=== PATIENT | female | born 1995 | race Caucasian/White ===

== ENCOUNTER 2016-12-15 22:08 | Observation (INO) | payer OTHER ==
[~2016-12-15] VITALS: Ht 162.6 cm; Wt 51.8 kg
[2016-12-15] MEDS ORDERED: SODIUM CHLORIDE FLUSH 10 ML SYR IV PRN (22:30)
--- NOTE | 2016-12-15 22:30 | NUR ---
NOTE ANDRES FROM [facility] PRIOR TO PT COMING IN. HE DID LET RN KNOW WHAT PT HAD TAKEN AND THAT EKG NEEDED DONE AND TO DO NORMAL LAB (CBC, CMP, DRUG, ETOH ETC) THEN MONITOR PT 6-8 HR FOR SIDE EFFECTS. DID LET DR WETZEL ON THIS.
[2016-12-15 22:52] LABS: BASOPHILS % (AUTO) 0 % (0-2); EOSINOPHILS # (AUTO) 0.2 10^3uL; EOSINOPHILS % (AUTO) 2 % (0-4); LYMPHOCYTES # (AUTO) 3.5 X10^3; MEAN CORPUSCULAR HEMOGLOBIN 28.3 PG (26.0-34.0); MEAN CORPUSCULAR HGB CONC 34.1 g/dL (31.0-37.0); MEAN CORPUSCULAR VOLUME 83 FL (80-100); MONOCYTES # (AUTO) 1.1 X10^3; MONOCYTES % (AUTO) 8 % (3-11); NEUTROPHILS # (AUTO) 7.9 X10^3; NEUTROPHILS % (AUTO) 62 % (51-67); PLATELET COUNT 210 10^3uL (150-450); WHITE BLOOD COUNT 12.69 10^3uL (4.0-11.0)
[2016-12-15 22:55] LABS: BILIRUBIN,URINE Negative (Negative); CLARITY,URINE Clear; COLOR,URINE Yellow; GLUCOSE, URINE (UA) Negative (Negative); LEUKOCYTE ESTERASE ,URINE Trace (Negative); PH,URINE 5.5 (5.0 - 8.0); UROBILINOGEN,URINE 0.2 mg/dL (0.2-1.0)
[2016-12-15 23:03] LABS: ALBUMIN 4.9 g/dL (3.4-5.0); ALKALINE PHOSPHATASE 73 U/L (38-126); ANION GAP 15.8 MEQ/L (3-15); BUN/CREATININE RATIO 22 (10-20); CALCULATED IONIZED CALCIUM 3.9 mg/dL (3.8-4.6); TOTAL PROTEIN 8.4 g/dL (6.4-8.5)
[2016-12-15 23:05] LABS: AMPHETAMINE SCREEN, URINE Negative (Negative); CANNABINOID SCREEN, URINE Negative (Negative); HCG,QUALITATIVE URINE Negative (Negative); METHAMPHETAMINE SCREEN URINE S NEGATIVE (NEGATIVE); RBC,URINE 0-2 /HPF; URINE CENTRIFUGED VOLUME 12 mL
[2016-12-15 23:06] LABS: OPIATE SCREEN URINE Negative (Negative); PROPOXYPHENE STAT NEGATIVE (NEGATIVE)
[2016-12-16] VITALS (7 sets, daily range): BP systolic 100–115; BP diastolic 52–71
[2016-12-16] MEDS ORDERED: ONDANSETRON 2 MG/ML (Z0FRAN) 2 ML VIAL IV PRN (00:35)
[2016-12-16] MEDS ORDERED: ACETAMINOPHEN 325 MG TAB (TYLENOL) PO PRN (00:35)
--- NOTE | 2016-12-16 01:10 | NUR ---
Pt arrives to 312 via w/c from ED. Relays history w/o difficulty. SL intact. Pt yawns frequently. Denies pain. See admission assessment for further details.
--- NOTE | 2016-12-16 01:55 | NUR ---
Dr Cortez assesses pt via remote monitoring.
--- NOTE | 2016-12-16 02:10 | History and Physical (E) ---
History & Physical CC: overdosed HPI: This is a 21 y/o female that lives alone (Mother and sister live in town and check on her from time to time, typically daily). The patient has a history of Bipolar disease. The patient had been prescribed zoloft and ativan and after moving to her new apartment had not taken her meds. The patient had increased sense of hopelessness today and thoughts of harming herself. The patient took 6 tablets each of zoloft and ativan. The patient did have SI and then contacted her mom and sister who brought her to the ED by private vehicle for workup. The patient's evaluation was non toxic and at this time will be admitted for medical clearing before further psychiatric evaluation. The pateint denies auditory or visual hallucinations PMH: bipolar disorder, suicide attempt in highschool, not hospitalized PSH: none SHx: single, no tobacco, no alcohol, no drugs, works, lives alone, close family support in town FHx: mother alive and without psychiatric disease, not much information known about dad Meds: none recently prescribed allergies: NKDA ROS: No headache and no change in vision, no sore throat, no neck pain, no chest pain , slight nausea, no emesis, no change in bowel or bladder, periods are regular, no urine symptoms, no edema, no focal neuro complaints, patient with increased anxiety and thoughts of worthlessness with increased suicidal thought. It is not clear if the episode tonight was related to wanting to get back on her medications and as such load herself? It is more likely that she took meds in an attempt to harm herself. The patient had been off her meds for unknown period of time and just took for first time tonight. PE VS: pulse 90, RR 16, sats normal room air, afebrile 135/70 slightly groggy but responds appropriate to questions oriented x 4 in mild distress sclera non icteric, PERRL neck with easy range of motion lungs diminished but clear heart rrr without murmur abd is soft, flat, bowel sounds present, non tender per nursing ext without edema neuro no focal deficit psych: flat affect, poor eye contact, Lab WBC 12 7 hg 14.3 plt 210 na 144 k 3.8 HCO3 27 bun 17 cr .8 glucose 106 UA neg, UdS benzo, preg neg EKG: sinus Imp/Plan 1. zoloft/benzo OD acute POA: admit to tele. fluids, no evidence of significantly respiratory failure. neuro checks, suicide precautions, screen in am, patient willing to go voluntary 2 suicide attempt acute POA: patient is variable in her reflection of what occurred. At this time will treat as a potential suicide attempt. suicide precautions, screen in am when medically stable 3. bipolar disease chronic POA: will need to be on meds. work with local psychiatrist to determine appropriate meds. probable to be determined when admitted voluntarily to psych facility 4. DVTppx: SCD full inpatient admission Allergies/Home Medications Allergies: Coded Allergies: No Known Allergies (Verified Allergy, Unknown, 12/15/16) Copies to: End of Report . KYUNG AVERY MD December 16, 2016 02:10
--- NOTE | 2016-12-16 03:46 | NUR ---
Pt resting quietly in bed with eyes closed. Resp even and non labored on RA.
[2016-12-16] MEDS ORDERED: PANTOPRAZOLE 40 MG (PROTONIX) TAB PO ONE (05:42)
[2016-12-16 06:04] LABS: BASOPHILS % (AUTO) 0 % (0-2); EOSINOPHILS # (AUTO) 0.1 10^3uL; EOSINOPHILS % (AUTO) 2 % (0-4); LYMPHOCYTES # (AUTO) 2.5 X10^3; MEAN CORPUSCULAR HEMOGLOBIN 28.3 PG (26.0-34.0); MEAN CORPUSCULAR HGB CONC 33.7 g/dL (31.0-37.0); MEAN CORPUSCULAR VOLUME 84 FL (80-100); MONOCYTES # (AUTO) 0.8 X10^3; MONOCYTES % (AUTO) 8 % (3-11); NEUTROPHILS # (AUTO) 6.1 X10^3; NEUTROPHILS % (AUTO) 64 % (51-67); PLATELET COUNT 188 10^3uL (150-450); WHITE BLOOD COUNT 9.61 10^3uL (4.0-11.0)
--- NOTE | 2016-12-16 06:53 | NUR ---
Pt sleeps in long intervals since admission. Denies pain. Resp even and non labored. IVF infusing w/o difficulty.
[2016-12-16] MEDS ORDERED: PANTOPRAZOLE 40 MG (PROTONIX) TAB PO SCH (07:00)
[2016-12-16 07:25] LABS: ANION GAP 12.6 MEQ/L (3-15)
--- NOTE | 2016-12-16 08:15 | NUR ---
Pt sitting up on edge of bed, eating breakfast. AAO, polite and cooperative. States she just feels "off". When asked to elaborate, pt states she feels shaky. No tremors noted. Denies nausea or pain. Skin warm, dry, intact. Resprs nonlabored, even on RA. IVF infusing with no difficulty. Pt asks when we will know what the plan is for today. Informed pt the doctor would round on her this morning and we would have a better picture after that. Pt denies needs.
--- NOTE | 2016-12-16 09:41 | NUR ---
Visited with Pt. who reported she did not have intentions of harming herself. Pt. reports she gets very depressed and she took her medications because she just wanted to feel better. Pt. reports she did this one other time in high school where she took a bunch of ibuprofen. SW expressed the importance of taking her medications as prescribed to help her maintain stability. Pt. reports her mother and older sister live in town and are supportive of her. Pt. recently moved into her own place and lives with her two beagles. Pt. currently works at [employer]. HARDEEP explained that a therapist from [facility] will come visit with her and provide recommendations. Pt. is not currently receiving any mental health services and denies any hospitalizations. Pt. is open to services. Jann from [facility] will be here at 15:00 to see Pt. unless he can get here sooner. Pt. informed of this. Pt. is pleasant and polite.
--- NOTE | 2016-12-16 11:14 | NUR ---
NUTRITION ASSESSMENT Level 1 Patient: Jaz Donis Age/Sex: 21/F Date Screened: 12-16-16 Weight: 113.9#/51.8 kg Height: 64 inches Primary Diagnosis: overdose Diet Order: regular Relevant labs: glucose 89 Food allergies: N Nutrition Assessment Criteria Age over 80: N Body Mass Index (BMI) under 19: N Admission Screening Indicates Risk? 3 points Moderate/High Risk Diagnosis: N TPN or PPN: N NPO or clear liquid diet: N Serum Glucose <70 or >180: N Hgb A1c >6.7: N/A Total: 3 points Risk Screen: __ Patient at low nutritional risk based on available data; reevaluate in 5-7 days _X_ Patient at moderate nutritional risk based on available data; reevaluate in 3-5 days __ Patient at high nutritional risk; complete Nutrition Assessment within 48 hours of admission.
--- NOTE | 2016-12-16 11:23 | Progress Note (E) ---
Progress Note SUBJECTIVE Admitted after midnight. Notes and labs reviewed. Reportedly took 6 tabs of her home doses of sertraline and lorazepam. Reportedly had feelings of hopelessness prompting this behavior. Contacted her sister and mother who brought her to ED. Total potential ingestion: Sertraline 25 mg x 6 150 mg total Lorazepam 0.5 mg x 6 3 mg total Since admit, vitals stable. Slept long intervals after admit. This AM, awakened easily. Has remained pleasant, cooperative, interactive. Stated to SW this AM she wasn't trying to kill herself but wanted to "feel better." Has history of impulsive behavior like this once before when she was in high school. On exam, awake, alert, interactive, pleasant and cooperative. Good eye contact. Good historian. Denies true SI with this ingestion and denies SI at present. States she took medication because she wanted to "feel better," in terms of her feelings of stress and of "achiness." Has not had mental health care previously. Meds were prescribed by PCP. Noted that she has label of bipolar disorder and takes sertraline but is not apparently taking a mood stabilizer. Has never had a manic or hypomanic episode. Has never had psychiatric hospitalization. Admits to increased depression due to combination of breakup with live-in boyfriend, recent move here from [place], increased stress in her work life. Agreeable to discussing with counselor today. OBJECTIVE Vital Signs Date Time Temp Pulse Resp B/P Pulse Ox O2 Delivery O2 Flow Rate FiO2 12/16/16 08:54 106 12/16/16 08:51 98.9 18 97 Room air 12/16/16 07:20 115/71 I & O 12/15/16 12/16/16 Cumulative From/Thru 19:00 07:00 12/15/16 22:20 - 12/16/16 06:03 Intake Total 465 ml 465 ml Balance 465 ml 465 ml GEN: Awake, alert, interactive, oriented, NAD. HEENT: EOMI, clear sclerae, moist oral mucosa. CV: Regular without murmur. SR on tele. PULM: CTA B with no R/R/W. ABD: Soft, NT/ND with normal bowel sounds. EXTR: No edema. INTEG: No rash. NEURO: No focal motor neuro deficit. PSYCH: Appearance: Dressed in running tights and t-shirt. Appears well-groomed. Behavior: Calm, cooperative, interactive. Affect: Full Eye Contact: Full Speech: Normal anne and vocabulary. Mood: "Blah" TC: Denies SI, HI, AH, VH, or paranoia. TP: Linear, coherent. Insight: Fair Judgement: Poor Lab-Past 14 Days, 35 Results 12/15/16 22:40: Acetaminophen Level < 10.0L, Alanine Aminotransferase (ALT/SGPT) 21L, Albumin 4.9, Albumin/Globulin Ratio 1.400, Alkaline Phosphatase 73, Anion Gap 15.8H, Aspartate Amino Transf (AST/SGOT) 23, BUN/Creatinine Ratio 22H, Basophils # ( Auto) 0.0, Basophils (%) (Auto) 0, Blood Urea Nitrogen 17, Calcium Level 9.8, Calcium/Ionized Calcium Ratio 3.9, Calculated Osmolality 280, Carbon Dioxide Level 27, Chloride Level 105, Creatinine 0.77, Eosinophils # (Auto) 0.2, Eosinophils (%) (Auto) 2, Estimat Glomerular Filtration Rate 114.5, Estimated GFR (Non- 94.6, Glucose Level 106, Hematocrit 41.90, Hemoglobin 14.3, Lymphocytes # (Auto) 3.5, Lymphocytes (%) (Auto) 28, Mean Corpuscular Hemoglobin 28.3, Mean Corpuscular Hemoglobin Concent 34.1, Mean Corpuscular Volume 83, Mean Platelet Volume 11.0H, Monocytes # (Auto) 1.1, Monocytes (%) ( Auto) 8, Neutrophils # (Auto) 7.9, Neutrophils (%) (Auto) 62, Platelet Count 210 , Potassium Level 3.8, Red Blood Count 5.06H, Red Cell Distribution Width 12.2, Salicylates Level < 1.0L, Serum Alcohol < 10.0L, Sodium Level 144, Thyroid Stimulating Hormone (TSH) 1.14, Total Bilirubin 0.9, Total Protein 8.4, Ur Tricyclic Antidepressants Screen Negative, Urine Amphetamines Screen Negative, Urine Bacteria None seen, Urine Barbiturates Screen Negative, Urine Benzodiazepines Screen PositiveH, Urine Bilirubin Negative, Urine Blood Negative , Urine Cannabinoids Screen Negative, Urine Clarity Clear, Urine Cocaine Screen Negative, Urine Collection Type Clean catch, Urine Color Yellow, Urine Glucose ( UA) Negative, Urine Ketones TraceH, Urine Leukocyte Esterase TraceH, Urine Methadone Screen Negative, Urine Methamphetamines Screen Negative, Urine Microscopic RBC 0-2, Urine Mucus 2+H, Urine Nitrite Negative, Urine Opiates Screen Negative, Urine Oxycodone Screen Negative, Urine Phencyclidine Screen Negative, Urine Test Negative, Urine Propoxyphene Screen Negative, Urine Protein Negative, Urine Specific [place] >=1.030, Urine Squamous Epithelial Cells 10-20, Urine Urobilinogen 0.2, Urine WBC 0-2, Urine pH 5.5, Volume Urine Centrifuged 12 ml, White Blood Count 12.69H 12/16/16 05:55: Anion Gap 12.6, BUN/Creatinine Ratio 19, Basophils # (Auto) 0.0, Basophils (%) ( Auto) 0, Blood Urea Nitrogen 14, Calcium Level 8.5L, Carbon Dioxide Level 23, Chloride Level 111H, Creatinine 0.72, Eosinophils # (Auto) 0.1, Eosinophils (%) (Auto) 2, Estimat Glomerular Filtration Rate 123.7, Estimated GFR (Non- 102.3, Glucose Level 89, Hematocrit 38.00, Hemoglobin 12.8, Lymphocytes # (Auto) 2.5, Lymphocytes (%) (Auto) 26, Mean Corpuscular Hemoglobin 28.3, Mean Corpuscular Hemoglobin Concent 33.7, Mean Corpuscular Volume 84, Mean Platelet Volume 11.0H, Monocytes # (Auto) 0.8, Monocytes (%) ( Auto) 8, Neutrophils # (Auto) 6.1, Neutrophils (%) (Auto) 64, Platelet Count 188 , Potassium Level 4.1, Red Blood Count 4.52, Red Cell Distribution Width 12.1, Sodium Level 143, White Blood Count 9.61 ASSESSMENT Jaz Donis is a 21 year old female admitted from ED 12/16 with intentional overdose of sertraline and lorazepam. She has underlying label of bipolar mood disorder. She reportedly had suicidal thoughts at the time of overdose but since admission has denied attempt to end her own life. PLAN * Intentional drug overdose: Occurred with sertraline and lorazepam, both medications which she has prescriptions for at home. Max ingestion of sertraline 150 mg. Max ingestion of lorazepam 3 mg. No sequelae expected. Supportive care. * Major Depression Disorder: Likely on the basis of history. [facility] evaluation pending. Recommend continuation of SSRI but also referral to [facility] for cognitive therapy and medication management. * Anxiety Disorder NOS: By history. Recommend cessation of lorazepam. Further therapy and medication management can be arranged through [facility]. * Suicidal Ideation: Had feelings of hopelessness prior to admit but denies suicide attempt at this time. Mental status exam as noted. Referred to [facility] for assessment but will likely discharge with outpatient follow-up. * F/E/N: General diet * Prophylaxis: Ambulate * Code Status: Full * Dispo: Observation. Possible D/C 12/16 pending [facility] consultation. CHRONIC ISSUES * Bipolar Disorder: Resolved. Unlikely she had this based on no history provided of manic or hypomanic episodes. Not on mood stabilizer. Observe. MARIS BIRCH MD December 16, 2016 11:20
--- NOTE | 2016-12-16 13:57 | NUR ---
MULTIDISCIPLINARY MTG/DR. BIRCH: Pt. took sertraline and lorazepam. She called her mother and sister and they brought her into the ER. Pt. denies an intent to harm herself although there were concerns for SI at admission. Pt. is doing well today and denies intent to harm herself. Pt. is open to talking to a therapist. [facility] will be here to visit with Pt. and set up outpatient services. Pt. will likely discharge later today.
--- NOTE | 2016-12-16 15:15 | NUR ---
[facility] here for consult.
--- NOTE | 2016-12-16 16:13 | Discharge Instructions (E) ---
Discharge Instructions Instructions * You were evaluated and treated for intentional overdose of sertraline and lorazepam. You have recovered and there are no complications expected from this overdose. Do not take any medications for which you do not have an active prescription. * You have been referred to [facility] for additional counseling and medication management. Keep your appointment as scheduled. * If you are feeling stressed, upset, or if you feel you are having any sort of crisis, immediate help is available 24-hours a day, 7 days a week. Call the [facility] Crisis Line any time, day or night: . Activity Instructions As tolerated. Doctor's Appointment Follow-up with [facility] as scheduled. Follow-up with your primary care doctor in 3-5 days. Discharge Diet: MARIS Reed MD December 16, 2016 16:13
--- NOTE | 2016-12-16 16:27 | Discharge Summary (E) ---
Discharge Summary (E) Admit Date/Time December 16, 2016 at 00:29 Discharge Date/Time December 16, 2016 Admitting Provider Federico Cortez MD Primary Care Provider Attending Provider Federico Cortez MD, Michael MD Consulting Provider [facility] BARROS History and Present Illness Jaz Donis is a 21 year old female admitted from ED 12/16 with intentional overdose of sertraline and lorazepam. She has underlying label of bipolar mood disorder though of note she does not have any true history of calista. She reportedly had suicidal thoughts at the time of overdose but since admission has denied attempt to end her own life. States she took excess meds because she wanted to "feel better" in terms of her feelings of stress and of "achiness." Has not had mental health care previously. Meds were old and prescribed previously by PCP. Noted that she has label of bipolar disorder and takes sertraline but is not apparently taking a mood stabilizer. Has never had a manic or hypomanic episode. Has never had psychiatric hospitalization. Admits to increased depression due to combination of breakup with live-in boyfriend, recent move here from [place], increased stress in her work life. Was agreeable to meeting with [facility] counselor who endorsed outpatient referral for counseling and medication management (should that be needed.) She was discharged home in improved, stable condition. Hospital Course and Treatment * Intentional drug overdose: Occurred with sertraline and lorazepam, both medications which she had old prescriptions for at home. Max ingestion of sertraline 150 mg. Max ingestion of lorazepam 3 mg. No sequelae expected. Supportive care. * Major Depression Disorder: Likely on the basis of history. Does not have an active prescription for sertraline so at discharge, referred to [facility] for counseling and possible medication management. * Anxiety Disorder NOS: By history. Recommend cessation of lorazepam. Further therapy and medication management can be arranged through [facility]. * Suicidal Ideation: Had feelings of hopelessness prior to admit but denies suicide attempt at this time. Mental status exam as noted. Referred to [facility] as noted. * F/E/N: General diet * Prophylaxis: Ambulate * Code Status: Full * Dispo: Observation. D/C home 12/16. CHRONIC ISSUES * Bipolar Disorder: Resolved. Unlikely she had this based on no history provided of manic or hypomanic episodes. Not on mood stabilizer. Observe. Discharge Physicial Exam General Vital Signs Date Time Temp Pulse Resp B/P Pulse Ox O2 Delivery O2 Flow Rate FiO2 12/16/16 12:06 97.7 96 16 107/69 96 Room air 96 GEN: Awake, alert, interactive, oriented, NAD. HEENT: EOMI, clear sclerae, moist oral mucosa. CV: Regular without murmur. SR on tele. PULM: CTA B with no R/R/W. ABD: Soft, NT/ND with normal bowel sounds. EXTR: No edema. INTEG: No rash. NEURO: No focal motor neuro deficit. PSYCH: Appearance: Dressed in running tights and t-shirt. Appears well-groomed. Behavior: Calm, cooperative, interactive. Affect: Full Eye Contact: Full Speech: Normal anne and vocabulary. Mood: "Blah" TC: Denies SI, HI, AH, VH, or paranoia. TP: Linear, coherent. Insight: Fair Judgement: Poor Laboratory/Radiology Data Lab-Past 14 Days, 35 Results 12/15/16 22:40: Acetaminophen Level < 10.0L, Alanine Aminotransferase (ALT/SGPT) 21L, Albumin 4.9, Albumin/Globulin Ratio 1.400, Alkaline Phosphatase 73, Anion Gap 15.8H, Aspartate Amino Transf (AST/SGOT) 23, BUN/Creatinine Ratio 22H, Basophils # ( Auto) 0.0, Basophils (%) (Auto) 0, Blood Urea Nitrogen 17, Calcium Level 9.8, Calcium/Ionized Calcium Ratio 3.9, Calculated Osmolality 280, Carbon Dioxide Level 27, Chloride Level 105, Creatinine 0.77, Eosinophils # (Auto) 0.2, Eosinophils (%) (Auto) 2, Estimat Glomerular Filtration Rate 114.5, Estimated GFR (Non- 94.6, Glucose Level 106, Hematocrit 41.90, Hemoglobin 14.3, Lymphocytes # (Auto) 3.5, Lymphocytes (%) (Auto) 28, Mean Corpuscular Hemoglobin 28.3, Mean Corpuscular Hemoglobin Concent 34.1, Mean Corpuscular Volume 83, Mean Platelet Volume 11.0H, Monocytes # (Auto) 1.1, Monocytes (%) ( Auto) 8, Neutrophils # (Auto) 7.9, Neutrophils (%) (Auto) 62, Platelet Count 210 , Potassium Level 3.8, Red Blood Count 5.06H, Red Cell Distribution Width 12.2, Salicylates Level < 1.0L, Serum Alcohol < 10.0L, Sodium Level 144, Thyroid Stimulating Hormone (TSH) 1.14, Total Bilirubin 0.9, Total Protein 8.4, Ur Tricyclic Antidepressants Screen Negative, Urine Amphetamines Screen Negative, Urine Bacteria None seen, Urine Barbiturates Screen Negative, Urine Benzodiazepines Screen PositiveH, Urine Bilirubin Negative, Urine Blood Negative , Urine Cannabinoids Screen Negative, Urine Clarity Clear, Urine Cocaine Screen Negative, Urine Collection Type Clean catch, Urine Color Yellow, Urine Glucose ( UA) Negative, Urine Ketones TraceH, Urine Leukocyte Esterase TraceH, Urine Methadone Screen Negative, Urine Methamphetamines Screen Negative, Urine Microscopic RBC 0-2, Urine Mucus 2+H, Urine Nitrite Negative, Urine Opiates Screen Negative, Urine Oxycodone Screen Negative, Urine Phencyclidine Screen Negative, Urine Test Negative, Urine Propoxyphene Screen Negative, Urine Protein Negative, Urine Specific [place] >=1.030, Urine Squamous Epithelial Cells 10-20, Urine Urobilinogen 0.2, Urine WBC 0-2, Urine pH 5.5, Volume Urine Centrifuged 12 ml, White Blood Count 12.69H 12/16/16 05:55: Anion Gap 12.6, BUN/Creatinine Ratio 19, Basophils # (Auto) 0.0, Basophils (%) ( Auto) 0, Blood Urea Nitrogen 14, Calcium Level 8.5L, Carbon Dioxide Level 23, Chloride Level 111H, Creatinine 0.72, Eosinophils # (Auto) 0.1, Eosinophils (%) (Auto) 2, Estimat Glomerular Filtration Rate 123.7, Estimated GFR (Non- 102.3, Glucose Level 89, Hematocrit 38.00, Hemoglobin 12.8, Lymphocytes # (Auto) 2.5, Lymphocytes (%) (Auto) 26, Mean Corpuscular Hemoglobin 28.3, Mean Corpuscular Hemoglobin Concent 33.7, Mean Corpuscular Volume 84, Mean Platelet Volume 11.0H, Monocytes # (Auto) 0.8, Monocytes (%) ( Auto) 8, Neutrophils # (Auto) 6.1, Neutrophils (%) (Auto) 64, Platelet Count 188 , Potassium Level 4.1, Red Blood Count 4.52, Red Cell Distribution Width 12.1, Sodium Level 143, White Blood Count 9.61 Discharge Disposition Discharged home. Instructions * You were evaluated and treated for intentional overdose of sertraline and lorazepam. You have recovered and there are no complications expected from this overdose. Do not take any medications for which you do not have an active prescription. * You have been referred to [facility] for additional counseling and medication management. Keep your appointment as scheduled. * If you are feeling stressed, upset, or if you feel you are having any sort of crisis, immediate help is available 24-hours a day, 7 days a week. Call the [facility] Crisis Line any time, day or night: . Activity Instructions As tolerated. Appointments Follow-up with [facility] as scheduled. Follow-up with your primary care doctor in 3-5 days. Discharge Diet: Regular Discharge Medications Medication Profile: No Active Prescriptions or Reported Meds Follow up Follow up Referrals: Physician Referral - 12/20/16 with Connie [facility] Discharge Diagnosis See list above. Problems: Copies to: End of Report . MARIS BIRCH MD December 16, 2016 16:27
--- NOTE | 2016-12-16 16:43 | NUR ---
Discharge instructions reviewed with patient and older sister, both demonstrate understanding. SL removed with catheter tip intact. No redness or edema noted. Belongings gathered. Skin warm, dry, intact. Resprs nonlabored, even on RA. Pt dismissed at this time via ambulation accompanied by sister and this nurse. Belongings and DC packet sent with patient.
== END 2016-12-16 16:43 | disposition home or self-care (01) ==
LOC: ED 22:14 → UNDOADMIN 12-16 00:29 → INTOOBSV 12-16 00:29 → MED/SURG 12-16 00:29 → UNDODISIN 12-16 16:43
PROVIDERS: ADMIT Emergency Medicine; ATTEND Emergency Medicine
DX: T43.222A Poisoning by selective serotonin reuptake inhibitors, intentional self-harm, initial encounter (principal); T42.4X2A Poisoning by benzodiazepines, intentional self-harm, initial encounter; F32.9 Major depressive disorder, single episode, unspecified; F41.9 Anxiety disorder, unspecified
CPT/HCPCS: 36415; 80048; 80053; 80307; 80320; 80329; 81003; 81015; 81025; 84443; 85025; 87088; 93005; 96360; 99284; J7030; 93010; 99285